=== PATIENT | male | born 1955 ===

== ENCOUNTER 2022-06-07 18:13 | Emergency (ER) | payer MEDICARE, OTHER | END 2022-06-07 19:30 | disposition home or self-care (01) | LOC: LB.ED 18:13 | DX: R33.9 Retention of urine, unspecified (principal); Z87.442 Personal history of urinary calculi | CPT/HCPCS: 81001; 87086; 99284 ==

== ENCOUNTER 2022-06-08 03:34 | Emergency (ER) | payer MEDICARE, OTHER | END 2022-06-08 04:15 | disposition home or self-care (01) | LOC: LB.ED 03:34 | DX: R33.9 Retention of urine, unspecified (principal); E78.00 Pure hypercholesterolemia, unspecified; I10 Essential (primary) hypertension; Z79.899 Other long term (current) drug therapy | CPT/HCPCS: 51702; 99283-25 ==